=== PATIENT | male | born 1945 | race African-American/Black ===

== ENCOUNTER 2017-08-21 09:00 | Outpatient (RCR) | payer OTHER | END 2017-08-22 | disposition home or self-care (01) | LOC: PTY 09:00 | DX: M47.812 Spondylosis without myelopathy or radiculopathy, cervical region (principal) | CPT/HCPCS: 97110; 97140; 97162; G0283 ==

== ENCOUNTER 2017-09-04 14:23 | Outpatient (RCR) | payer OTHER | END 2017-09-22 | disposition home or self-care (01) | LOC: PTY 14:23 | DX: M47.812 Spondylosis without myelopathy or radiculopathy, cervical region (principal) | CPT/HCPCS: 97110; 97140; G0283 ==

== ENCOUNTER 2017-10-03 14:50 | Outpatient (RCR) | payer OTHER | END 2017-10-23 | disposition home or self-care (01) | LOC: PTY 14:50 | DX: M47.812 Spondylosis without myelopathy or radiculopathy, cervical region (principal) | CPT/HCPCS: 97110; 97112; 97140; G0283 ==

== ENCOUNTER 2017-11-06 12:30 | Outpatient (RCR) | payer OTHER | END 2017-11-20 | disposition home or self-care (01) | LOC: PTY 12:30 | DX: M47.812 Spondylosis without myelopathy or radiculopathy, cervical region (principal) | CPT/HCPCS: 97110; 97112; G0283 ==

== ENCOUNTER 2017-12-05 13:00 | Outpatient (RCR) | payer OTHER | END 2017-12-21 | disposition home or self-care (01) | LOC: PTY 13:00 | DX: M47.812 Spondylosis without myelopathy or radiculopathy, cervical region (principal) | CPT/HCPCS: 97110; G0283 ==